=== PATIENT | female | born 2000 | race Caucasian/White ===

== ENCOUNTER 2021-07-29 17:23 | Emergency (ER) | payer SELFPAY ==
--- NOTE | 2021-07-29 17:54 | Emergency Department Report ---
ED Female HPI - General Chief complaint: Vaginal Bleeding Stated complaint: Irregular menstruation Time Seen by Provider: 07/29/21 17:47 Source: patient, RN notes reviewed Mode of arrival: Ambulatory Limitations: No Limitations - History of Present Illness Initial comments: Patient is an obese 21-year-old female, with a history of marijuana use, body mass index of 58.6, who presents to the ER today with complaint of painless irregular menstruation for months. The patient currently denies headache, neck pain, chest pain, abdominal pain, shortness of breath, vomiting, diarrhea, and urinary symptoms. She does not believe that she is . She reports an outpatient museum tour guide put her on Depo. This was a few years ago. She has been intermittently taking the Depo. She currently does not have an [facility] physician. MD Complaint: vaginal bleeding -: Gradual Consistency: intermittent Improves with: none Worsens with: none Are you Now?: No Associated Symptoms: vaginal bleeding - Related Data Sexually active: Yes Allergies Allergy/AdvReac Type Severity Reaction Status Date / Time No Known Allergies Allergy Unverified 01/17/16 07:19 ED Review of Systems ROS: Stated complaint: ABD PAIN Other details as noted in HPI Constitutional: denies: fever Eyes: denies: eye discharge ENT: denies: epistaxis Respiratory: denies: cough Cardiovascular: denies: chest pain Gastrointestinal: denies: abdominal pain, nausea, vomiting, hematemesis, melena, hematochezia Genitourinary: abnormal menses. denies: dysuria Musculoskeletal: denies: myalgia Neurological: denies: weakness ED Physical Exam - General Limitations: No Limitations General appearance: alert, in no apparent distress - Head Head exam: Present: atraumatic, normocephalic - Eye Eye exam: Present: normal appearance, EOMI. Absent: nystagmus - ENT ENT exam: Present: normal exam, normal orophraynx, mucous membranes moist, normal external ear exam - Neck Neck exam: Present: normal inspection, full ROM. Absent: tenderness, meningismus - Respiratory Respiratory exam: Present: normal lung sounds bilaterally. Absent: respiratory distress, wheezes, rales, rhonchi, stridor, decreased breath sounds - Cardiovascular Cardiovascular Exam: Present: regular rate, normal rhythm, normal heart sounds. Absent: bradycardia, tachycardia, irregular rhythm, systolic murmur, diastolic murmur, rubs, gallop - GI/Abdominal GI/Abdominal exam: Present: soft. Absent: distended, tenderness, guarding, rebound, rigid, pulsatile mass - External exam: Present: normal external exam, bleeding (Minimal vaginal bleeding is noted), other (Patient provided consent for gynecologic examination. Chaperoned by Fanny Aguilar) - Extremities Exam Extremities exam: Present: normal inspection, full ROM, other (2+ pulses noted in the bilateral upper and lower extremities. There is no palpable cord. negative Homans sign. Muscular compartments are soft. The pelvis is stable.). Absent: pedal edema, calf tenderness - Back Exam Back exam: Present: normal inspection, full ROM. Absent: tenderness, CVA tenderness (R), CVA tenderness (L), paraspinal tenderness, vertebral tenderness - Neurological Exam Neurological exam: Present: alert, oriented X3, normal gait, other (No facial droop. Tongue midline. Extraocular movements intact bilaterally. Facial se nsation intact to light touch in V1, V2, V3 distribution bilaterally. 5 and a 5 strength in 4 extremities. Sensation intact to light touch in 4 extremities.). Absent: motor sensory deficit - Psychiatric Psychiatric exam: Present: normal affect, normal mood - Skin Skin exam: Present: warm, dry, intact, normal color. Absent: rash ED Course Vital Signs 07/29/21 07/29/21 07/29/21 17: 18:35 20:11 Temperature 98.1 F 98.8 F Pulse Rate 99 H 77 72 Respiratory 18 18 14 Rate Blood Pressure 141/80 Blood Pressure 130/72 128/74 [Right] O2 Sat by Pulse 100 100 100 Oximetry ED Medical Decision Making - Lab Data Result diagrams: 07/29/21 18:03 Vital Signs 07/29/21 07/29/21 17:26 18:35 Temperature 98.1 F 98.8 F Pulse Rate 99 H 77 Respiratory 18 18 Rate Blood Pressure 141/80 Blood Pressure 130/72 [Right] O2 Sat by Pulse 100 100 Oximetry Lab Results 07/29/21 07/29/21 07/29/21 Range/Units 18:03 18:03 18:03 WBC 11.5 H (4.5-11.0) K/mm3 RBC 4.65 (3.65-5.03) M/mm3 Hgb 12.8 (10.1-14.3) gm/dl Hct 39.7 (30.3-42.9) % MCV 85 (79-97) fl MCH 28 (28-32) pg MCHC 32 (30-34) % RDW 13.8 (13.2-15.2) % Plt Count 348 (140-440) K/mm3 TSH 1.820 (0.270-4.200) mlU/mL HCG, Quant < 2 (0-4) mIU/mL - Medical Decision Making Differential diagnosis, including but not limited to: Dysfunctional uterine bleeding, encounter for test, obesity, marijuana use, thyroid derangement Assessment and plan: 21-year-old female, who is afebrile with reassuring vital signs, with no abdominal pain, tenderness, rebound or guarding, who ambulates with a steady gait, who is clinically sober, who presents to the ER today with a primary complaint of irregular vaginal bleeding since 2019. She was previously on Depo. She has not followed up with an outpatient [facility] recently. She is clinically sober at this time, and in no acute distress. She denies urinary symptoms. CBC acceptable. She is not . TSH within normal limits. Outpatient follow-up with primary care or [facility] for irregular menstruation. Also counseled to discontinue cannabis consumption Critical care attestation.: If time is entered above; I have spent that time in minutes in the direct care of this critically ill patient, excluding procedure time. ED Disposition Clinical Impression: Irregular menstruation, Marijuana use, test negative, Body mass index (BMI) of 50-59.9 in adult Disposition: 01 HOME / SELF CARE / HOMELESS Is pt being admited?: No Does the pt Need Aspirin: No Condition: Good Instructions: Abnormal Uterine Bleeding Additional Instructions: We recommend that the patient discontinue marijuana consumption. We also recommended that the patient exercise as tolerated, and aggressively lose weight; patient is found to have body mass index of 58.6. Laboratory studies today demonstrated normal blood counts, negative test, normal thyroid test. We recommend that the patient follow-up with an outpatient [facility] physician within the next 2 to 4 weeks for outpatient evaluation for history of irregular vaginal bleeding and menstruation. Please return to the emergency room right away with new pain, worsened pain, migration of pain, projectile vomiting, change in mental status, confusion, inability to tolerate liquid feeds, new, worsened or different symptoms not present on the initial emergency room evaluation Referrals: PRIMARY CARE, [Primary Care Provider] - 3-5 Days [facility] [Provider Group] - 3-5 Days [facility] [Provider Group] - 3-5 Days [facility] [Provider Group] - 3-5 Days Forms: Work/School Release Form(ED)
[2021-07-29 18:27] LABS: Hematocrit 39.7 % (30.3-42.9); Hemoglobin 12.8 gm/dl (10.1-14.3); Mean Corpuscular HGB Conc 32 % (30-34); Mean Corpuscular Volume 85 fl (79-97); Platelet Count 348 K/mm3 (140-440); Red Blood Count 4.65 M/mm3 (3.65-5.03); Red Cell Distribution Width 13.8 % (13.2-15.2)
[2021-07-29 20:12] VITALS: BP 128/74
== END 2021-07-29 20:12 | disposition home or self-care (01) ==
LOC: ED 17:23
DX: N92.6 Irregular menstruation, unspecified (principal); F12.90 Cannabis use, unspecified, uncomplicated; Z32.02 Encounter for pregnancy test, result negative; Z68.43 Body mass index [BMI] 50.0-59.9, adult
CPT/HCPCS: 36415; 84443; 84702; 85027; 99283